=== PATIENT | male | born 1975 | race Caucasian/White ===

== ENCOUNTER 2018-07-26 12:06 | Emergency (ER) | payer OTHER ==
[~2018-07-26] VITALS: Ht 193 cm; Wt 91.0 kg
[2018-07-26 13:43] VITALS: BP 107/64
[2018-07-26] MEDS ORDERED: PER10325T PO (14:13)
== END 2018-07-26 14:50 | disposition home or self-care (01) ==
LOC: ER 12:06
DX: L97.819 Non-pressure chronic ulcer of other part of right lower leg with unspecified severity (principal); I48.91 Unspecified atrial fibrillation; I50.9 Heart failure, unspecified; M10.9 Gout, unspecified
CPT/HCPCS: 93005; 99283